=== PATIENT | female | born 2005 | race Caucasian/White ===

== ENCOUNTER 2024-06-27 11:57 | Outpatient (CLI) | payer BC ==
[2024-06-27 13:59] LABS: Hematocrit 41.8 % (34.9-44.5)
[2024-06-27 14:08] LABS: BHCG - Serum Negative (NEGATIVE); Pregs Control Background? CLEAR/WHITE (CLR/WHITE); Pregs Control Bar Appear? YES (CONTROL BAR)
== END 2024-06-27 11:58 | disposition home or self-care (01) ==
LOC: CSHLAB 11:57
PROVIDERS: ATTEND Otolaryngology
DX: Z01.812 Encounter for preprocedural laboratory examination (principal); J35.8 Other chronic diseases of tonsils and adenoids; J35.1 Hypertrophy of tonsils
CPT/HCPCS: 84703; 85014

== ENCOUNTER 2024-07-01 07:05 | Day surgery (SDC) | payer BC ==
[2024-06-27 13:16] VITALS: BMI 27.4
[2024-07-01] MEDS ORDERED: PROPOFOL 20 ML ONE ×2 (08:56→08:57)
[2024-07-01] MEDS ORDERED: fentaNYL 50 mcg/mL 1 mL Vial ONE ×2 (08:56→10:16)
[2024-07-01] MEDS ORDERED: KETAMINE 100 MG/ML (5ML VIAL) ONE (09:00)
[2024-07-01] MEDS ORDERED: Scopolamine 1 mg/72 hour Patch ONE (09:03)
[2024-07-01] MEDS ORDERED: CEFAZOLIN 1 GM VIAL ONE (09:15)
[2024-07-01] MEDS ORDERED: HYDROcodone/Acetaminophen 5/325 mg Tablet ONE (10:45)
[2024-07-01] MEDS ORDERED: Ondansetron ODT 4 MG TAB ONE (11:01)
== END 2024-07-01 11:30 | disposition home or self-care (01) ==
LOC: CSHSDC 07:05
PROVIDERS: ATTEND Otolaryngology
PROC: 0CTPXZZ Resection of Tonsils, External Approach (ICD-10-PCS; principal; 2024-07-01)
DX: J35.1 Hypertrophy of tonsils (principal); J35.8 Other chronic diseases of tonsils and adenoids; F31.9 Bipolar disorder, unspecified; Z79.899 Other long term (current) drug therapy
CPT/HCPCS: 88184; 88304; J0690; J2704; J3010; Q0162